=== PATIENT | female | born 1970 ===

== ENCOUNTER 2017-08-26 09:44 | Emergency (ER) | payer OTHER ==
[~2017-08-26] VITALS: Ht 165.1 cm; Wt 81.6 kg
[~2017-08-26 09:44] MED LIST: TESSALON PERLE100 MG PO; TUSSI PRES-B L120 M1 PO; TUSSIONEX PENNKI5 ML PO
== END 2017-08-26 20:05 | disposition home or self-care (01) ==
LOC: ER 09:44
DX: D25.9 Leiomyoma of uterus, unspecified (principal)

== ENCOUNTER 2018-02-16 13:07 | Emergency (ER) | payer OTHER ==
[~2018-02-16] VITALS: Ht 165.1 cm; Wt 79.4 kg
== END 2018-02-16 17:04 | disposition home or self-care (01) ==
LOC: ER 13:07
DX: I16.0 Hypertensive urgency (principal); I10 Essential (primary) hypertension

== ENCOUNTER 2019-04-22 13:03 | Emergency (ER) | payer OTHER ==
[~2019-04-22] VITALS: Ht 165.1 cm; Wt 90.7 kg
[2019-04-22] MEDS ORDERED: COZAAR100 MG PO (13:26)
[2019-04-22] MEDS ORDERED: TOPROL XL50 M1 PO (13:26)
[2019-04-22] MEDS ORDERED: DOLOGEN CAPLET1 EACH PO (20:17)
== END 2019-04-22 20:23 | disposition home or self-care (01) ==
LOC: ER 13:03
DX: B34.9 Viral infection, unspecified (principal); M54.5 Low back pain; D25.1 Intramural leiomyoma of uterus